=== PATIENT | male | born 1985 | race Hispanic/Latino ===

== ENCOUNTER 2018-02-08 08:21 | Emergency (ER) | payer MEDICAID ==
[2018-02-08 08:35] VITALS: BP 109/56
[2018-02-08] MEDS ORDERED: ULTRAM PO ONE (09:59)
[2018-02-08] MEDS ORDERED: TORADOL IM ONE (09:59)
--- NOTE | 2018-02-08 10:01 | Emergency Department Report ---
ED Lower Extremity HPI - General Chief Complaint: Extremity Injury, Lower Stated Complaint: LEFT ANKLE PAIN Time Seen by Provider: 02/08/18 09:55 Source: patient Mode of arrival: Ambulatory Limitations: No Limitations - History of Present Illness Initial Comments: 32-year-old male presents to the hospital complaining of left lateral foot injury while playing basketball yesterday. He has left lateral foot pain and swelling that is constant, aching, and moderate in intensity. Pain worsened movement, palpation, and ambulation. Patient only able to bear partial weight. Took Motrin 800 last night for pain with some improvement. - Related Data Previous Rx's Medication Instructions Recorded Last Taken Type HYDROcodone/APAP 5-325 [[place] 1 each PO Q6HR PRN #20 tablet 02/08/18 Unknown Rx 5/325] Ibuprofen [Motrin] 800 mg PO Q8HR PRN #30 tablet 02/08/18 Unknown Rx Allergies Allergy/AdvReac Type Severity Reaction Status Date / Time No Known Allergies Allergy Verified 02/08/18 10:24 ED Review of Systems ROS: Stated complaint: LEFT ANKLE PAIN Other details as noted in HPI Comment: All other systems reviewed and negative ED Past Medical Hx - Past Medical History Previous Medical History?: No - Surgical History Past Surgical History?: Yes Additional Surgical History: testicle removed - Medications Home Medications: Home Medications Medication Instructions Recorded Confirmed Last Taken Type HYDROcodone/APAP 5-325 [[place] 1 each PO Q6HR PRN #20 tablet 02/08/18 Unknown Rx 5/325] Ibuprofen [Motrin] 800 mg PO Q8HR PRN #30 tablet 02/08/18 Unknown Rx ED Physical Exam - General Limitations: No Limitations - Other Other exam information: General: No limitations, patient is alert in no acute distress Head exam: Atraumatic, normocephalic Eyes exam: Normal appearance ENT: Moist mucous membrane Neck exam: Normal inspection, full range of motion, no meningismus nontender Respiratory exam: Clear to auscultation bilateral, no wheezes, rales, crackles Cardiovascular: Normal rate and rhythm, normal heart sounds Abdomen: Soft, nondistended, and nontender, with normal bowel sounds, no rebound, or guarding Extremity: Full range of motion normal inspection, left lateral foot swelling. No ankle tenderness to palpation. 2+ DP pulse Back: Normal Inspection, full range of motion, no tenderness Neurologic: Alert, oriented x3, cranial nerves intact, no motor or sensory deficit Psychiatric: normal affect, normal mood Skin: Warm, dry, intact ED Course Vital Signs 02/08/18 02/08/18 02/08/18 08:29 10:08 10:09 Temperature 97.7 F Pulse Rate 68 Respiratory 18 20 20 Rate Blood Pressure 109/56 O2 Sat by Pulse 98 Oximetry ED Lower Extremity MDM - Radiology Data Radiology results: image reviewed (read by me: Left foot x-ray: 5 th Metatarsal fracture) - Medical Decision Making Patient has a fracture of the fifth metatarsal left foot. Rubin wrap and cast shoe applied. Crutches provided. Patient be discharged home with follow-up with orthopedics recommended. - Differential Diagnosis fracture, contusion, sprain Critical Care Time: No Critical care attestation.: If time is entered above; I have spent that time in minutes in the direct care of this critically ill patient, excluding procedure time. ED Disposition Clinical Impression: Metatarsal fracture Qualifiers: Encounter type: initial encounter Metatarsal bone: fifth Fracture type: closed Fracture alignment: nondisplaced Laterality: left Qualified Code(s): S92.355A - Nondisplaced fracture of fifth metatarsal bone, left foot, initial encounter for closed fracture Disposition: - TO HOME OR SELFCARE Is pt being admited?: No Does the pt Need Aspirin: No Condition: Stable Instructions: Foot Fracture in Adults (ED) Additional Instructions: Take the medication as prescribed. You have a broken bone in the fifth bone of your left foot. It is very important that you continue to wear the cast shoe and follow-up with the orthopedic doctor for further management. Prescriptions: HYDROcodone/APAP 5-325 [[place] 5/325] 1 each PO Q6HR PRN #20 tablet PRN Reason: Pain Ibuprofen [Motrin] 800 mg PO Q8HR PRN #30 tablet PRN Reason: Pain Referrals: LOU AQUINO MD [Staff Physician] - 3-5 Days Time of Disposition: 11:17
[2018-02-08] MEDS ORDERED: ULTRAM ONE (10:03)
[2018-02-08] MEDS ORDERED: TORADOL ONE (10:03)
--- NOTE | 2018-02-08 11:59 | XRay Report ---
X-ray LEFT FOOT THREE VIEWS: 02/08/18 09:59:00 CLINICAL: Left lateral foot pain. FINDINGS: Oblique fracture of the distal fifth metatarsal with interruption of the lateral cortex but an intact medial cortex. Slight displacement of the proximal and distal fracture fragments. No other fractures. Normal soft tissues. IMPRESSION: Acute/subacute closed traumatic incomplete and mildly displaced fracture of the distal fifth metatarsal.
== END 2018-02-08 11:48 | disposition home or self-care (01) ==
LOC: ED 08:21
DX: S92.355A Nondisplaced fracture of fifth metatarsal bone, left foot, initial encounter for closed fracture (principal); X58.XXXA Exposure to other specified factors, initial encounter; Y93.67 Activity, basketball; Y99.2 Volunteer activity; Y92.39 Other specified sports and athletic area as the place of occurrence of the external cause
CPT/HCPCS: 73630; 96372; 99284; J1885